=== PATIENT | female | born 1960 | race Caucasian/White ===

== ENCOUNTER 2017-10-28 16:22 | Emergency (ER) | payer BC ==
[2017-10-28] MEDS ORDERED: ONDANSETRON 4 MG TAB.RAPDIS PO ONE (17:16)
--- NOTE | 2017-10-28 17:20 | ER Document Report ---
ED Medical Screen (RME) - General Chief Complaint: Abdominal Pain Stated Complaint: STOMACH PAIN Time Seen by Provider: 10/28/17 17:16 Mode of Arrival: Ambulatory Information source: Patient Notes: Pt is a 56 year old female who presents to the ER today for mid abdominal pain x 1 day. she has a hx of pancreatitis and states this feels the same. she admits to nausea/vomiting. she denies diarrhea or fever/chills. TRAVEL OUTSIDE OF THE [place] IN LAST 30 DAYS: No - Related Data Allergies/Adverse Reactions: azithromycin [Azithromycin] Allergy (Verified 10/25/13 06:49) clarithromycin [From Biaxin] Allergy (Verified 10/25/13 06:49) clindamycin Allergy (Verified 10/28/17 16:25) Past Medical History - General Information source: Patient - Past Medical History Cardiac Medical History: Reports: Hx Hypertension Pulmonary Medical History: Denies: Hx Tuberculosis Past Surgical History: Reports: Hx Thyroid Surgery - thyroid removed .due to cancer, then radiation, Hx Tubal Ligation - Immunizations Immunizations up to date: No Hx Diphtheria, Pertussis, Tetanus Vaccination: No Review of Systems - Review of Systems Gastrointestinal: See HPI Physical Exam - Vital signs Vitals: Temp Pulse Resp BP Pulse Ox 97.4 F 87 14 155/93 H 99 10/28/17 16:31 10/28/17 16:31 10/28/17 16:31 10/28/17 16:31 10/28/17 16:31 - Notes Notes: general: holding emesis bag, mildly ill appearing Course - Vital Signs Vital signs: Temp Pulse Resp BP Pulse Ox 97.4 F 87 14 155/93 H 99 10/28/17 16:31 10/28/17 16:31 10/28/17 16:31 10/28/17 16:31 10/28/17 16:31
[2017-10-28 17:50] LABS: ABSOLUTE BASOPHILS # (AUTO) 0.1 10^3/uL (0.0-0.2); ABSOLUTE LYMPHOCYTES (AUTO) 0.8 10^3/uL (0.5-4.7); ABSOLUTE MONOCYTES (AUTO) 0.6 10^3/uL (0.1-1.4); ABSOLUTE NEUT (AUTO) 10.8 10^3/uL (1.7-8.2); BASOPHILS % (AUTO) 0.7 % (0-2); EOSINOPHILS % (AUTO) 0.4 % (0-6); HEMATOCRIT 37.4 % (36.0-47.0); HEMOGLOBIN 12.8 g/dL (12.0-15.5); LYMPHOCYTES % (AUTO) 6.3 % (13-45); MEAN CORPUSCULAR HEMOGLOBIN 28.1 pg (27.0-33.4); MEAN CORPUSCULAR HGB CONC 34.3 g/dL (32.0-36.0); MEAN CORPUSCULAR VOLUME 82 fl (80-97); MONOCYTES % (AUTO) 4.7 % (3-13); PLATELET COUNT 249 10^3/uL (150-450); RED BLOOD COUNT 4.58 10^6/uL (3.72-5.28); RED CELL DISTRIBUTION WIDTH 15.1 % (11.5-14.0); SEGMENTED NEUTROPHILS % (AUTO) 87.9 % (42-78); TOTAL CELLS COUNTED % (AUTO) 100 %; WHITE BLOOD COUNT 12.2 10^3/uL (4.0-10.5)
[2017-10-28 18:02] LABS: APPEARANCE,URINE CLEAR; BILIRUBIN,URINE NEGATIVE (NEGATIVE); COLOR,URINE YELLOW; GLUCOSE, URINE NEGATIVE (NEGATIVE); KETONES,URINE 20 mg/dL (NEGATIVE); LEUKOCYTE ESTERASE,URINE NEGATIVE (NEGATIVE); NITRITE,URINE NEGATIVE (NEGATIVE); PROTEIN,URINE NEGATIVE (NEGATIVE); UROBILINOGEN,URINE NEGATIVE mg/dL (<2.0)
[2017-10-28 18:07] LABS: ALANINE AMINOTRANSFERASE 40 U/L (9-52); ALBUMIN 4.7 g/dL (3.5-5.0); ALKALINE PHOSPHATASE 77 U/L (38-126); ANION GAP 10 (5-19); ASPARTATE AMINO TRANSFERASE 22 U/L (14-36); BILIRUBIN,DIRECT 0.3 mg/dL (0.0-0.4); BILIRUBIN,TOTAL 0.5 mg/dL (0.2-1.3); BLOOD UREA NITROGEN 14 mg/dL (7-20); CALCIUM 9.3 mg/dL (8.4-10.2); CARBON DIOXIDE 29 mmol/L (22-30); CHLORIDE 100 mmol/L (98-107); GLUCOSE 142 mg/dL (75-110); LIPASE 163.7 U/L (23-300); POTASSIUM 4.1 mmol/L (3.6-5.0); SODIUM 139.3 mmol/L (137-145); TOTAL PROTEIN 7.7 g/dL (6.3-8.2)
[2017-10-28] MEDS ORDERED: NORMAL SALINE 1000 ML 1,000 ML IV ONE ×2 (19:39→23:23)
[2017-10-28] MEDS ORDERED: MORPHINE SULFATE 10 MG/ML INJ IV ONE ×2 (19:39→23:23)
--- NOTE | 2017-10-28 19:43 | ER Document Report ---
ED GI/ - General Chief Complaint: Abdominal Pain Stated Complaint: STOMACH PAIN Time Seen by Provider: 10/28/17 17:16 Mode of Arrival: Ambulatory Notes: Patient is a 56-year-old female who comes emergency department for chief complaint of mid abdominal pain since yesterday, she reports nausea, she states that she feels like she needs to have a bowel movement and she took a laxative and had a few small bowel movements which appeared normal. She denies fever or chills. She states that she felt similar about 4 years ago when she had pancreatitis. She denies any alcohol. She denies any abdominal surgeries. Past medical history of orthopedic surgery, blood clots, she has a peripheral stent in her left leg and she is not on a blood thinner. TRAVEL OUTSIDE OF THE [place] IN LAST 30 DAYS: No - Related Data Allergies/Adverse Reactions: azithromycin [Azithromycin] Allergy (Verified 10/25/13 06:49) clarithromycin [From Biaxin] Allergy (Verified 10/25/13 06:49) clindamycin Allergy (Verified 10/28/17 16:25) Past Medical History - General Information source: Patient - Social History Smoking Status: Never Smoker Chew tobacco use (# tins/day): No Frequency of alcohol use: Rare Drug Abuse: None Lives with: Family Family History: Arthritis, CAD, DM, Hyperlipidemia, Hypertension, Malignancy Patient has suicidal ideation: No Patient has homicidal ideation: No - Past Medical History Cardiac Medical History: Reports: Hx Hypertension Pulmonary Medical History: Denies: Hx Tuberculosis Renal/ Medical History: Denies: Hx Peritoneal Dialysis Past Surgical History: Reports: Hx Thyroid Surgery - thyroid removed .due to cancer, then radiation, Hx Tubal Ligation - Immunizations Immunizations up to date: No Hx Diphtheria, Pertussis, Tetanus Vaccination: No Review of Systems - Review of Systems Constitutional: No symptoms reported EENT: No symptoms reported Cardiovascular: No symptoms reported Respiratory: No symptoms reported Gastrointestinal: See HPI Genitourinary: No symptoms reported Female Genitourinary: No symptoms reported Musculoskeletal: No symptoms reported Skin: No symptoms reported Hematologic/Lymphatic: No symptoms reported Neurological/Psychological: No symptoms reported Physical Exam - Vital signs Vitals: Temp Pulse Resp BP Pulse Ox 97.4 F 87 14 155/93 H 99 10/28/17 16:31 10/28/17 16:31 10/28/17 16:31 10/28/17 16:31 10/28/17 16:31 Interpretation: Normal - General General appearance: Appears well, Alert In distress: None - HEENT Head: Normocephalic, Atraumatic Eyes: Normal Pupils: PERRL - Respiratory Respiratory status: No respiratory distress Chest status: Nontender Breath sounds: Normal. No: Decreased air movement, Wheezing Chest palpation: Normal - Cardiovascular Rhythm: Regular. No: Tachycardia Heart sounds: Normal auscultation, S1 appreciated, S2 appreciated Murmur: No - Abdominal Inspection: Normal Distension: No distension Bowel sounds: Normal Tenderness: Tender - Patient with a mid to upper abdominal tenderness on exam, she winces with palpation there is not any significant guarding, no rigidity, no rebound tenderness. Lower abdomen is unremarkable Organomegaly: No organomegaly - Back Back: Normal, Nontender. No: Tender - Extremities General upper extremity: Normal inspection, Nontender, Normal ROM, Normal strength General lower extremity: Normal inspection, Nontender, Normal ROM, Normal strength - Neurological Neuro grossly intact: Yes Cognition: Normal Orientation: AAOx4 [place] Coma Scale Eye Opening: Spontaneous Vin Coma Scale Verbal: Oriented Vin Coma Scale Motor: Obeys Commands Vin Coma Scale Total: 15 Speech: Normal Cranial nerves: Normal Cerebellar coordination: Normal Motor strength normal: LUE, RUE, LLE, RLE Additional motor exam normals: Equal registered nurse obstetrics Sensory: Normal - Psychological Associated symptoms: Normal affect, Normal mood - Skin Skin Temperature: Warm Skin Moisture: Dry Skin Color: Normal Course - Re-evaluation Re-evalutation: CBC shows mild leukocytosis, no bandemia, no fever, no hypotension or tachycardia. Chemistry unremarkable, lipase unremarkable. Urinalysis unremarkable. Patient given IV fluids, pain medicine, nausea medicine, afterwards symptoms resolved. She still has pain on abdominal exam, as result CAT scan will be performed to rule out abscess, perforation, or surgical abnormality. CAT scan showing no acute surgical abnormality, however it does indicate pancreatitis with inflammation around the head. Because of patient's normal lipase I suspect she has chronic pancreatitis. She denies ever drinking alcohol. I discussed checking triglycerides, patient declined, she is tolerating p.o., she states she would prefer her primary care to check this. Patient will be discharged home on medications, she is given strict return precautions for if she worsens, she was given instructions for her diet at home , patient and state satisfaction and agreement with plan. - Vital Signs Vital signs: Temp Pulse Resp BP Pulse Ox 98.8 F 89 16 142/93 H 96 10/29/17 00:54 10/29/17 00:54 10/29/17 00:54 10/29/17 00:54 10/29/17 00:54 - Laboratory Result Diagrams: 10/28/17 17:39 10/28/17 17:39 Laboratory results interpreted by me: 10/28/17 10/28/17 10/28/17 17:30 17:39 17:39 WBC 12.2 H RDW 15.1 H Seg Neutrophils % 87.9 H Lymphocytes % 6.3 L Absolute Neutrophils 10.8 H Glucose 142 H Urine Ketones 20 H Urine Blood SMALL H Discharge - Discharge Clinical Impression: Abdominal pain Qualifiers: Abdominal location: generalized Qualified Code(s): R10.84 - Generalized abdominal pain Condition: Stable Disposition: HOME, SELF-CARE Additional Instructions: Your CAT scan is normal except shows inflammation of the pancreas. Your lipase is normal, the suggestion might have chronic pancreatitis. As we discussed you need your triglycerides evaluated and possibly treated, please follow-up in the next few days with your primary care provider to have this checked and for additional management. Start with clear fluids, progress to bland food as tolerated, take the pain and nausea medications prescribed if needed. Return if you worsen including vomiting, severe pain, fever, or any other concerning symptoms. Prescriptions: Morphine Sulfate [Morphine Ir 15 Mg Tablet] 15 mg PO Q4HP PRN #15 tablet PRN Reason: Ondansetron [Zofran Odt 4 mg Tablet] 1 - 2 tab PO Q4H PRN #15 tab.rapdis PRN Reason: For Nausea/Vomiting Referrals: BRIE RODRIGUEZ MD [Primary Care Provider] - 10/30/17
[2017-10-28] MEDS ORDERED: ONDANSETRON HCL INJ/PF 4 MG/2 ML SDV IV ONE (21:57)
[2017-10-28] MEDS ORDERED: DIPHENHYDRAMINE HCL 50 MG/ML VIAL IV ONE (22:28)
--- NOTE | 2017-10-28 22:49 | RADIOLOGY REPORT (SQ) ---
EXAM DESCRIPTION: CT ABD/PELVIS WITH IV ORAL COMPLETED DATE/TIME: 10/28/2017 10:36 pm REASON FOR STUDY: sharp mid abd pain, leukocytosis COMPARISON: None. TECHNIQUE: CT scan of the abdomen and pelvis performed using helical scanning technique with dynamic intravenous contrast injection. No oral contrast. Images reviewed with lung, soft tissue, and bone windows. Reconstructed coronal and sagittal MPR images reviewed. Delayed images for evaluation of the urinary system also acquired. All images stored on PACS. All CT scanners at this facility use dose modulation, iterative reconstruction, and/or weight based d osing when appropriate to reduce radiation dose to as low as reasonably achievable (ALARA). [facility]: Dose Right [facility]: CareDose [facility]: Dose Right [facility]: Teradose 4D [facility]: [employer] [place] CONTRAST TYPE AND DOSE: contrast/concentration: Isovue 370.00 mg/ml; Total Contrast Delivered: 100.0 ml; Total Saline Delivered: 70.0 ml RENAL FUNCTION: BUN 14; creatinine 0.87 RADIATION DOSE: CT Rad equipment meets quality standard of care and radiation dose reduction techniq ues were employed. CTDIvol: 21.1 mGy. DLP: 2347 mGy-cm.. LIMITATIONS: None. FINDINGS: LOWER CHEST: No significant findings. No nodules or infiltrates. LIVER: Diffusely decreased attenuation consistent with fatty infiltration. Normal size. No masses. No intrahepatic biliary dilatation. SPLEEN: Normal size. No focal lesions. PANCREAS: Mild inflammatory changes are seen about the pancreatic head. No masses are demonstrated. The duct is not dilated. GALLBLADDER: No identified stones by CT criteria. No inflammatory changes to suggest cholecystitis. ADRENAL GLANDS: A 2 cm rounded nodule involving the medial limb of the left adrenal gland demonstrate s focally decreased attenuation suggesting lipid rich adenoma. RIGHT KIDNEY AND URETER: No solid masses. No significant calcifications. No hydronephrosis or hyd roureter. LEFT KIDNEY AND URETER: No solid masses. No significant calcifications. No hydronephrosis or hydr oureter. AORTA AND VESSELS: No aneurysm. No dissection. Renal arteries, SMA, celiac without stenosis. RETROPERITONEUM: No retroperitoneal adenopathy, hemorrhage or masses. BOWEL AND PERITONEAL CAVITY: No masses or inflammatory changes. No free fluid or peritoneal masses. APPENDIX: Not visualized. PELVIS: No mass. No free fluid. Normal bladder. ABDOMINAL WALL: No masses. No hernias. BONES: No significant or acute findings. OTHER: No other significant finding. IMPRESSION: Findings consistent with acute uncomplicated pancreatitis. TECHNICAL DOCUMENTATION: JOB ID: [id number] Quality ID # 436: Final reports with documentation of one or more dose reduction techniques (e.g., Au tomated exposure control, adjustment of the mA and/or kV according to patient size, use of iterative reconstruction technique) 2010 [employer]- All Rights Reserved
[2017-10-29] MEDS ORDERED: HYDROCODONE/ACETAMINOPHEN 5-325 MG (6 TAB/ER DISP) PO PRN (00:40)
[2017-10-29 00:55] VITALS: BP 142/93
== END 2017-10-29 01:03 | disposition home or self-care (01) ==
LOC: ER 16:22
DX: K85.90 Acute pancreatitis without necrosis or infection, unspecified (principal); R10.84 Generalized abdominal pain; R11.0 Nausea; I10 Essential (primary) hypertension; E89.0 Postprocedural hypothyroidism; D72.829 Elevated white blood cell count, unspecified; Z85.850 Personal history of malignant neoplasm of thyroid; Z92.3 Personal history of irradiation; Z88.1 Allergy status to other antibiotic agents
CPT/HCPCS: 96376; 99284; 96361; 96374; 96375; 36415; 83690; 85025; 80053; 81001; 74177; J1200; S0119; J2270; J2405; J7030

== ENCOUNTER 2019-11-09 21:49 | Emergency (ER) | payer MEDICARE, OTHER ==
--- NOTE | 2019-11-09 23:25 | ER Document Report ---
ED General - General Chief Complaint: Chest Pain Stated Complaint: POSS BLOOD CLOT/CHEST PRESSURE Time Seen by Provider: 11/09/19 23:15 Primary Care Provider: BRIE RODRIGUEZ MD [Primary Care Provider] - Follow up as needed Mode of Arrival: Ambulatory Information source: Patient, Relative Notes: 58-year-old female with 3-day history of right-sided chest pain radiating to her right arm with a pinched nerve sensation associated with shortness of breath. She was diagnosed in early October with COPD and had a rule out pulmonary embolism by her PMD. This patient reports in 2014 she had a left lower leg DVT as well as a right lung pulmonary embolism and was placed on Xeralto then changed to Eliquis. She has been off of this for several years now . Now she takes iron aspirin Synthroid and Metoprolol she also complains of right arm pointing to her medial arm without any edema or ecchymosis or cord palpable. TRAVEL OUTSIDE OF THE [place] IN LAST 30 DAYS: No - HPI Onset: Other - X3 days worse tonight Onset/Duration: Sudden, Constant, Persistent, Worse Quality of pain: Achy Severity: Severe Pain Level: 4 Associated symptoms: Chest pain, Shortness of breath Exacerbated by: Movement, Deep breathing Relieved by: Denies Similar symptoms previously: Yes Recently seen / treated by doctor: Yes - Related Data Allergies/Adverse Reactions: azithromycin [Azithromycin] Allergy (Verified 10/25/13 06:49) clarithromycin [From Biaxin] Allergy (Verified 10/25/13 06:49) clindamycin Allergy (Verified 10/28/17 16:25) Home Medications: metroprolol. synthroid. iron. ASA. albuterol Past Medical History - General Information source: Patient, Relative - boyfriend - Social History Smoking Status: Never Smoker Cigarette use (# per day): No Chew tobacco use (# tins/day): No Smoking Education Provided: No Frequency of alcohol use: None Drug Abuse: None Family History: Arthritis, CAD, DM, Hyperlipidemia, Hypertension, Malignancy Patient has suicidal ideation: No Patient has homicidal ideation: No - Past Medical History Cardiac Medical History: Reports: Hx Hypertension Pulmonary Medical History: Reports: Hx COPD Denies: Hx Tuberculosis Renal/ Medical History: Denies: Hx Peritoneal Dialysis Past Surgical History: Reports: Hx Thyroid Surgery - thyroid removed 09/22 01/31.due to cancer, then radiation, Hx Tubal Ligation - Immunizations Immunizations up to date: No Hx Diphtheria, Pertussis, Tetanus Vaccination: No Review of Systems - Review of Systems Constitutional: Weakness EENT: No symptoms reported Cardiovascular: Chest pain, Palpitations, Heart racing, Dyspnea Respiratory: Short of breath Gastrointestinal: No symptoms reported Genitourinary: No symptoms reported Female Genitourinary: No symptoms reported Musculoskeletal: Other - Pain in left medial calf and left medial thigh but no obvious swelling according to patient. Skin: No symptoms reported Hematologic/Lymphatic: No symptoms reported, Anemia Physical Exam - Vital signs Vitals: Temp Pulse Resp BP Pulse Ox 97.6 F 102 H 20 168/108 H 98 11/09/19 22:13 11/09/19 22:13 11/09/19 22:13 11/09/19 22:13 11/09/19 22:13 Interpretation: Tachycardic - General General appearance: Alert In distress: None - HEENT Head: Normocephalic Eyes: Normal Cornea: Normal Extraocular movements intact: Yes Eyelashes: Normal Pupils: PERRL Pharynx: Normal Neck: Normal, Other - Anterior throat with a horizontal scar around sternal notch - Respiratory Respiratory status: No respiratory distress Chest status: Nontender Breath sounds: Normal Chest palpation: Normal - Cardiovascular Rhythm: Tachycardia Heart sounds: Normal auscultation Murmur: No Friction rub: No Janet's crunch: No - Abdominal Inspection: Normal Distension: Distended - Back Back: Normal - Extremities General upper extremity: Normal inspection General lower extremity: Tender - Tender left medial calf and medial thigh no obvious cord Forearm: Normal Wrist: Normal Hand: Normal Hip: Normal Thigh: Normal Knee: Normal Course - Vital Signs Vital signs: Temp Pulse Resp BP Pulse Ox 97.6 F 102 H 11 L 169/86 H 95 11/09/19 22:13 11/09/19 22:13 11/10/19 02:01 11/10/19 02:00 11/10/19 02:01 - Laboratory Result Diagrams: 11/09/19 23:44 11/09/19 23:44 Laboratory results interpreted by me: 11/09/19 11/09/19 11/09/19 23:44 23:44 23:44 RDW 15.7 H D-Dimer 0.75 H Carbon Dioxide 32 H BUN 22 H Glucose 111 H NT-Pro-B Natriuret Pep 11/09/19 23:44 RDW D-Dimer Carbon Dioxide BUN Glucose NT-Pro-B Natriuret Pep 195 H - Diagnostic Test Radiology reviewed: Reports reviewed - EKG Interpretation by Me EKG shows normal: Sinus rhythm Rate: Tachycardia Critical Care Note - Critical Care Note Total time excluding time spent on procedures (mins): 90 Comments: Discussed findings with patient and boyfriend.. With negative CT for PE but because of no availability for ultrasound tonight a ultrasound will be ordered for tomorrow of right arm and left leg. We will empirically begin on Lovenox subcu and Eliquis p.o. Discharge - Discharge Clinical Impression: DVT (deep venous thrombosis), Dyspnea Condition: Good Disposition: HOME, SELF-CARE Additional Instructions: Get an ultrasound tomorrow of your right arm and left lower extremity to help establish diagnosis of DVT; although up with personal doctor if symptoms persist take medicines as directed Prescriptions: Apixaban [Eliquis 2.5 mg Tablet] 2.5 mg PO BID 10 Days #20 tablet Oxycodone HCl/Acetaminophen [Percocet 5-325 mg Tablet] 1 tab PO BID #10 tablet Forms: Follow-Up Outpatient Testing, Return to Work Referrals: BRIE RODRIGUEZ MD [Primary Care Provider] - Follow up as needed
--- NOTE | 2019-11-10 | RADIOLOGY REPORT (SQ) ---
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 COMPARISON: 11/02/2013 FINDINGS: Normal heart size without pulmonary edema. No focal consolidation is identified. No pleural effusions or pneumothorax. IMPRESSION: No evidence of acute cardiopulmonary disease.
[2019-11-10 00:15] LABS: INTERNATIONAL RATION (INR) 0.95; PROTHROMBIN TIME 12.6 SEC (11.4-15.4)
[2019-11-10 00:17] LABS: D-DIMER 0.75 ug/mL (0.00-0.50)
[2019-11-10 00:19] LABS: ABSOLUTE BASOPHILS # (AUTO) 0.1 10^3/uL (0.0-0.2); ABSOLUTE EOSINOPHILS # (AUTO) 0.4 10^3/uL (0.0-0.6); ABSOLUTE LYMPHOCYTES (AUTO) 1.4 10^3/uL (0.5-4.7); ABSOLUTE MONOCYTES (AUTO) 0.3 10^3/uL (0.1-1.4); ABSOLUTE NEUT (AUTO) 4.3 10^3/uL (1.7-8.2); BASOPHILS % (AUTO) 1.1 % (0-2); EOSINOPHILS % (AUTO) 5.8 % (0-6); HEMATOCRIT 36.7 % (36.0-47.0); HEMOGLOBIN 12.5 g/dL (12.0-15.5); LYMPHOCYTES % (AUTO) 21.6 % (13-45); MEAN CORPUSCULAR HEMOGLOBIN 28.7 pg (27.0-33.4); MEAN CORPUSCULAR HGB CONC 34.2 g/dL (32.0-36.0); MEAN CORPUSCULAR VOLUME 84 fl (80-97); MONOCYTES % (AUTO) 5.3 % (3-13); PLATELET COUNT 209 10^3/uL (150-450); RED BLOOD COUNT 4.37 10^6/uL (3.72-5.28); RED CELL DISTRIBUTION WIDTH 15.7 % (11.5-14.0); SEGMENTED NEUTROPHILS % (AUTO) 66.2 % (42-78); TOTAL CELLS COUNTED % (AUTO) 100 %; WHITE BLOOD COUNT 6.4 10^3/uL (4.0-10.5)
[2019-11-10 00:21] LABS: ALBUMIN 4.1 g/dL (3.5-5.0); ALKALINE PHOSPHATASE 70 U/L (38-126); ANION GAP 7 (5-19); ASPARTATE AMINO TRANSFERASE 24 U/L (14-36); BILIRUBIN,TOTAL 0.3 mg/dL (0.2-1.3); BLOOD UREA NITROGEN 22 mg/dL (7-20); CALCIUM 9.2 mg/dL (8.4-10.2); CARBON DIOXIDE 32 mmol/L (22-30); CHLORIDE 101 mmol/L (98-107); GLUCOSE 111 mg/dL (75-110); POTASSIUM 3.9 mmol/L (3.6-5.0); TOTAL PROTEIN 7.1 g/dL (6.3-8.2)
[2019-11-10 00:33] LABS: CREATINE KINASE MB 0.45 ng/mL (<4.55); NT PRO BNP 195 pg/mL (<125); TROPONIN I < 0.012 ng/mL
[2019-11-10] MEDS ORDERED: FENTANYL CITRATE INJ/PF 100 MCG/2 ML AMPUL IV ONE (00:40)
[2019-11-10] MEDS ORDERED: ONDANSETRON HCL INJ/PF 4 MG/2 ML SDV IV ONE (00:41)
--- NOTE | 2019-11-10 02:12 | RADIOLOGY REPORT (SQ) ---
EXAM DESCRIPTION: CT CHEST ANGIOGRAPHY WITHOUT THEN WITH IV CONTRAST COMPLETED DATE/TME: 11/09/2019 23:18 CLINICAL HISTORY: 58 years, Female, sob. creat 0.89 COMPARISON: None. TECHNIQUE: Images stored on PACS. All CT scanners at this facility use dose modulation, iterative reconstruction, and/or weight based dosing when appropriate to reduce radiation dose to as low as reasonably achievable (ALARA). [facility]: Dose Right [facility]: CareDose [facility]: Dose Right [facility]: Teradose 4D [facility]: [employer] LIMITATIONS: None. FINDINGS: There is a dilute contrast bolus and main pulmonary artery segment, average Hounsfield unit of 137. No central pulmonary embolus. Branch vessels cannot be assessed. The aorta is of normal caliber without aneurysm dissection the visualized portion. The heart is prominent with coronary calcification. No effusion. No bulky mediastinal adenopathy. Visualized abdominal contents demonstrate hepatic steatosis. Lung bases are incompletely imaged. There appears be a small adenoma the left adrenal, incompletely imaged, estimated at 1.4 cm. IMPRESSION: No evidence of central pulmonary embolus.. Lungs grossly clear TECHNICAL DOCUMENTATION: Quality ID # 436: Final reports with documentation of one or more dose reduction techniques (e.g., Automated exposure control, adjustment of the mA and/or kV according to patient size, use of iterative reconstruction technique) copyright 2011 [employer]- All Rights Reserved
[2019-11-10] MEDS ORDERED: ENOXAPARIN SODIUM INJ 150 MG/1 ML DISP.SYRIN SUBCUT ONE (02:44)
[2019-11-10] MEDS ORDERED: APIXABAN 2.5 MG TABLET PO ONE (02:55)
[2019-11-10 03:15] VITALS: BP 153/85
--- NOTE | 2019-11-10 18:30 | EKG REPORT ---
SEVERITY:- OTHERWISE NORMAL ECG - SINUS TACHYCARDIA : Confirmed by: Laurel Jha MD 10-Nov-2019 18:28:58
== END 2019-11-10 03:28 | disposition home or self-care (01) ==
LOC: ER 21:49
DX: I82.409 Acute embolism and thrombosis of unspecified deep veins of unspecified lower extremity (principal); R06.00 Dyspnea, unspecified; R07.9 Chest pain, unspecified; I10 Essential (primary) hypertension; J44.9 Chronic obstructive pulmonary disease, unspecified; Z86.718 Personal history of other venous thrombosis and embolism; Z79.01 Long term (current) use of anticoagulants; Z88.3 Allergy status to other anti-infective agents; Z98.51 Tubal ligation status
CPT/HCPCS: 93005; 99291; 99292; 96374; 96375; 36415; 82553; 85025; 85610; 80053; 84484; 85379; 83880; 71045; 71275; 93010; J3010; J2405; A9270

== ENCOUNTER → 2019-11-11 | Outpatient (CLI) | payer MEDICARE ==
--- NOTE | 2019-11-11 15:28 | XCELERA REPORT ---
[address] [address] Upper Extremity Venous Evaluation Name: ALEX MORALES Age: 58 yrs Gender: Female : 1960 Patient Status: Outpatient Patient Location: [facility] Study Date: 11/11/2019 01:31 PM Procedure: Unilateral duplex scan of the right upper extremity veins was performed, including responses to compression and other maneuvers. Reason For Study: RUE AND LLE PAIN/SWELLING Ordering Physician: MEGHA WHITLEY Performed By: Lexii Chang Right Side Venous Evaluation Normal vessel filling wall to wall, compression and augmentation as well as Colour flow down to the forearm veins. Interpretation Summary No duplex evidence of DVT or obstruction in the right upper extremity. : MEGHA WHITLEY [place]
--- NOTE | 2019-11-11 15:32 | XCELERA REPORT ---
[address] [facility] [address] [facility] Procedure: Color flow and duplex imaging of the veins of the left lower extremity as well as the right Common Femoral vein. Right Sided Venous Evaluation The right common femoral vein is fully compressible. Spontaneous and phasic flow is present in the right common femoral vein. Left Sided Venous Evaluation Webbing, striations are seen on carmona scale in the Popliteal vein. Normal vessel filling wall to wall, compression and augmentation as well as Colour flow down to the infrageniculate veins. Interpretation Summary No duplex evidence of DVT or obstruction in the left lower extremity nor in the right Common Femoral vein. Striations in the left Popliteal vein, could represent scar, left over from prior thrombosis, or other injury. Name: ALEX MORALES Age: 58 yrs Gender: Female : 1960 Patient Status: Outpatient Patient Location: [facility] Study Date: 11/11/2019 01:51 PM Reason For Study: RUE AND LLE PAIN/SWELLING Ordering Physician: MEGHA WHITLEY Performed By: Lexii Chang : MEGHA WHITLEY > Noah Euceda
== END ==
LOC: RAD 12:51
PROVIDERS: ATTEND Emergency Medicine Emergency Medical Services
DX: I82.409 Acute embolism and thrombosis of unspecified deep veins of unspecified lower extremity (principal); R06.00 Dyspnea, unspecified
CPT/HCPCS: 93971